=== PATIENT | female | born 1995 | race Caucasian/White ===

== ENCOUNTER 2017-08-30 12:34 | Emergency (ER) | payer OTHER | END 2017-08-30 18:00 | disposition home or self-care (01) | LOC: FTE 12:34 | DX: S59.902A Unspecified injury of left elbow, initial encounter (principal); W22.09XA Striking against other stationary object, initial encounter; Y92.9 Unspecified place or not applicable | CPT/HCPCS: 29105; 73080-LT; 99283-25 ==

== ENCOUNTER 2017-09-02 20:04 | Inpatient (IN) | payer OTHER ==
[2017-09-02] MEDS: SOD CHLORIDE 0.9% 500 ML IV (22:30)
[2017-09-02] MEDS ORDERED: ACETAMINOPHEN 325 MG TAB PO (22:30)
[2017-09-02] MEDS ORDERED: ONDANSETRON 4 MG INJ IV (22:30)
[2017-09-02 22:39] LABS: ADD MAN DIFF? NO
[2017-09-02 22:44] LABS: WHITE BLOOD COUNT 6.1 10^3/ul (4.8-10.8)
[2017-09-02 22:44] LABS: BASOPHILS % 0.5 % (0.0-2.0); EOSINOPHILS # 0.1 10^3/ul (0.0-0.5); HEMOGLOBIN 10.3 g/dl (12.0-16.0); LYMPHOCYTES # 0.9 10^3/ul (0.8-2.9); LYMPHOCYTES % 14.7 % (15.0-51.0); MEAN CORPUSCULAR HEMOGLOBIN 29.6 pg (29.0-33.0); MEAN CORPUSCULAR HGB CONC 33.2 g/dl (32.0-37.0); MEAN CORPUSCULAR VOLUME 89.1 fl (82.0-101.0); MEAN PLATELET VOLUME 9.2 fl (7.4-10.4); MONOCYTE # 0.3 10^3/ul (0.3-0.9); MONOCYTES % 4.7 % (0.0-11.0); NEUTROPHIL # 4.7 10^3/ul (1.6-7.5); PLATELET COUNT 341 10^3/UL (140-415); RED BLOOD COUNT 3.48 10^6/ul (4.20-5.40); RED CELL DISTRIBUTION WIDTH 13.9 % (11.5-14.5)
[2017-09-02 23:08] LABS: ALANINE AMINOTRANSFERASE 52 IU/L (13-69); ALBUMIN 2.8 g/dl (3.3-4.9); ALKALINE PHOSPHATASE 235 IU/L (42-121); ANION GAP 12 (8-16); ASPARTATE AMINO TRANSFERASE 123 IU/L (15-46); BLOOD UREA NITROGEN 4 mg/dl (7-20); CALCIUM 7.7 mg/dl (8.4-10.2); CARBON DIOXIDE 26 mmol/L (21-31); CHLORIDE 104 mmol/L (97-110); CREATININE 0.47 mg/dl (0.44-1.00); GLUCOSE 98 mg/dl (70-220); POTASSIUM 3.6 mmol/L (3.5-5.1); SODIUM 138 mmol/L (135-144); TOTAL PROTEIN 6.8 g/dl (6.1-8.1)
[2017-09-02 23:13] LABS: C-REACTIVE PROTEIN 1.1 mg/dl (0.0-0.9)
[2017-09-02 23:53] LABS: ERYTHROCYTE SEDIMENTATION RATE 60 mm/Hr (0-20)
[2017-09-03] MEDS ORDERED: ALBUTEROL/IPRATROPIUM (NEB) 3 ML AMP HHN (00:30)
[2017-09-03] MEDS ORDERED: NACL 0.9% 3 ML SYG IV (00:30)
[2017-09-03] MEDS ORDERED: morphine 2 MG INJ IV (00:30)
[2017-09-03] MEDS ORDERED: ONDANSETRON 4 MG INJ IV (00:30)
[2017-09-03] MEDS ORDERED: ACETAMINOPHEN 325 MG TAB PO (00:30)
[2017-09-03 02:07] LABS: ADD UMIC NO; UR ASCORBIC ACID NEGATIVE (NEGATIVE); UR BILIRUBIN (Dip) NEGATIVE (NEGATIVE); UR BLOOD (Dip) NEGATIVE (NEGATIVE); UR CLARITY CLEAR (CLEAR); UR COLOR STRAW (YELLOW); UR GLUCOSE (Dip) NEGATIVE (NEGATIVE); UR KETONES (Dip) NEGATIVE (NEGATIVE); UR LEUKOCYTE ESTERASE (Dip) NEGATIVE Leu/ul (NEGATIVE); UR NITRITE (Dip) NEGATIVE (NEGATIVE); UR SPECIFIC GRAVITY (Dip) 1.005 (1.003-1.030); UR TOTAL PROTEIN (Dip) NEGATIVE (NEGATIVE); UR UROBILINOGEN (Dip) NEGATIVE (NEGATIVE)
[2017-09-03 06:32] LABS: WHITE BLOOD COUNT 5.7 10^3/ul (4.8-10.8)
[2017-09-03 06:32] LABS: HEMOGLOBIN 10.1 g/dl (12.0-16.0); MEAN CORPUSCULAR HEMOGLOBIN 29.4 pg (29.0-33.0); MEAN CORPUSCULAR HGB CONC 32.6 g/dl (32.0-37.0); MEAN CORPUSCULAR VOLUME 90.1 fl (82.0-101.0); MEAN PLATELET VOLUME 9.3 fl (7.4-10.4); PLATELET COUNT 328 10^3/UL (140-415); RED BLOOD COUNT 3.44 10^6/ul (4.20-5.40); RED CELL DISTRIBUTION WIDTH 13.8 % (11.5-14.5)
[2017-09-03 06:49] LABS: IRON 46 ug/dl (35-150)
[2017-09-03 06:58] LABS: % IRON SATURATION 26 % SAT (22-52); TOTAL IRON BINDING CAPACITY 176 ug/dl (241-421)
[2017-09-03 07:01] LABS: ALANINE AMINOTRANSFERASE 55 IU/L (13-69); ALBUMIN 2.4 g/dl (3.3-4.9); ALBUMIN/GLOBULIN RATIO 0.63; ALKALINE PHOSPHATASE 227 IU/L (42-121); ANION GAP 10 (8-16); ASPARTATE AMINO TRANSFERASE 117 IU/L (15-46); BLOOD UREA NITROGEN 4 mg/dl (7-20); CALCIUM 7.8 mg/dl (8.4-10.2); CARBON DIOXIDE 26 mmol/L (21-31); CHLORIDE 107 mmol/L (97-110); CREATININE 0.46 mg/dl (0.44-1.00); GLUCOSE 91 mg/dl (70-220); SODIUM 139 mmol/L (135-144); TOTAL PROTEIN 6.2 g/dl (6.1-8.1)
[2017-09-03 07:04] LABS: LACTATE DEHYDROGENASE 1282 IU/L (313-618)
[2017-09-03 07:04] LABS: ADD MAN DIFF? YES; POSITIVE DIFF @See below
[2017-09-03 07:18] LABS: T3 UPTAKE 40.4 % (23.5-40.5); T4 (THYROXINE) 10.9 ug/dl (5.5-11.0)
[2017-09-03 09:34] LABS: ANISOCYTOSIS 1+ (0-0); BAND NEUTROPHILS #M 1.3 10^3/ul (0.0-0.6); BAND NEUTROPHILS % (M) 23 % (0-4); BASOPHILS % (M) 1 % (0-2); GIANT THROMBO% (M) 3 % (0-0); LYMPHOCYTES #M 0.3 10^3/ul (0.8-2.9); LYMPHOCYTES % (M) 7 % (15-51); MICROCYTOSIS 1+ (0-0); MONOCYTE #M 0.1 10^3/ul (0.3-0.9); MONOCYTES % (M) 3 % (0-11); MYELOCYTES % (M) 1 % (0-0); PLATELET ESTIMATE NORMAL; POLYCHROMASIA 1+ (0-0); REACTIVE LYMPHOCYTES #M 0.1 10^3/ul (0.0-0.0); REACTIVE LYMPHOCYTES% (M) 3 % (0-0); SEG NEUT #M 3.6 10^3/ul (1.7-7.5); SEGMENTED NEUTROPHILS (M) % 62 % (39-77); SMUDGE%M 8 % (0-0)
[2017-09-03] MEDS: SOD CHLORIDE 0.45% 1,000 ML IV (13:23)
[2017-09-03 16:31] LABS: RHEUMATOID FACTOR NEGATIVE (NEGATIVE)
[2017-09-03] MEDS: BARIUM SULF 2% 450 ML BTL (BERRY SMOOTHIE) PO (17:06)
[2017-09-03] MEDS ORDERED: SOD CHLORIDE 0.9% 100 ML (21:48)
[2017-09-03] MEDS ORDERED: IOHEXOL 300MG/ML 150 ML BTL (21:48)
[2017-09-04] MEDS: SOD CHLORIDE 0.45% 1,000 ML IV (01:16)
[2017-09-04 06:08] LABS: ADD MAN DIFF? NO
[2017-09-04 06:20] LABS: BASOPHILS % 0.3 % (0.0-2.0); EOSINOPHILS # 0.1 10^3/ul (0.0-0.5); EOSINOPHILS % 0.9 % (0.0-7.0); HEMATOCRIT 32.9 % (37.0-47.0); HEMOGLOBIN 10.4 g/dl (12.0-16.0); LYMPHOCYTES # 0.9 10^3/ul (0.8-2.9); LYMPHOCYTES % 13.1 % (15.0-51.0); MEAN CORPUSCULAR HEMOGLOBIN 28.7 pg (29.0-33.0); MEAN CORPUSCULAR HGB CONC 31.6 g/dl (32.0-37.0); MEAN CORPUSCULAR VOLUME 90.9 fl (82.0-101.0); MEAN PLATELET VOLUME 9.2 fl (7.4-10.4); MONOCYTE # 0.4 10^3/ul (0.3-0.9); MONOCYTES % 5.2 % (0.0-11.0); NEUTROPHIL # 5.5 10^3/ul (1.6-7.5); NEUTROPHILS % 78.9 % (39.0-77.0); PLATELET COUNT 335 10^3/UL (140-415); RED BLOOD COUNT 3.62 10^6/ul (4.20-5.40); RED CELL DISTRIBUTION WIDTH 13.8 % (11.5-14.5)
[2017-09-04 06:54] LABS: ANION GAP 13 (8-16); BLOOD UREA NITROGEN 3 mg/dl (7-20); CALCIUM 7.7 mg/dl (8.4-10.2); CARBON DIOXIDE 25 mmol/L (21-31); CHLORIDE 106 mmol/L (97-110); CREATININE 0.46 mg/dl (0.44-1.00); GLUCOSE 92 mg/dl (70-220); MAGNESIUM 1.9 mg/dl (1.7-2.5); PHOSPHORUS 4.2 mg/dl (2.5-4.9); POTASSIUM 3.5 mmol/L (3.5-5.1); SODIUM 140 mmol/L (135-144)
[2017-09-04] MEDS: INFLUENZA VIRUS VACCINE 0.5 ML (DISPENSING) IM* (09:01)
[2017-09-04 13:02] LABS: ANA SCREEN NEGATIVE (NEGATIVE)
[2017-09-04 19:37] LABS: CYCLIC CITRULLINATED PEP IGG <16 UNITS
[2017-09-05 06:05] LABS: ADD MAN DIFF? NO
[2017-09-05 06:11] LABS: BASOPHILS % 0.5 % (0.0-2.0); EOSINOPHILS # 0.1 10^3/ul (0.0-0.5); EOSINOPHILS % 1.3 % (0.0-7.0); HEMATOCRIT 34.3 % (37.0-47.0); HEMOGLOBIN 11.1 g/dl (12.0-16.0); LYMPHOCYTES % 15.4 % (15.0-51.0); MEAN CORPUSCULAR HEMOGLOBIN 29.2 pg (29.0-33.0); MEAN CORPUSCULAR HGB CONC 32.4 g/dl (32.0-37.0); MEAN CORPUSCULAR VOLUME 90.3 fl (82.0-101.0); MEAN PLATELET VOLUME 9.2 fl (7.4-10.4); MONOCYTE # 0.3 10^3/ul (0.3-0.9); NEUTROPHIL # 4.8 10^3/ul (1.6-7.5); NEUTROPHILS % 77.2 % (39.0-77.0); PLATELET COUNT 343 10^3/UL (140-415); RED CELL DISTRIBUTION WIDTH 13.8 % (11.5-14.5)
[2017-09-05 06:11] LABS: WHITE BLOOD COUNT 6.2 10^3/ul (4.8-10.8)
[2017-09-05 06:37] LABS: ANION GAP 12 (8-16); BLOOD UREA NITROGEN 5 mg/dl (7-20); CALCIUM 7.7 mg/dl (8.4-10.2); CARBON DIOXIDE 27 mmol/L (21-31); CHLORIDE 103 mmol/L (97-110); CREATININE 0.51 mg/dl (0.44-1.00); GLUCOSE 120 mg/dl (70-220); MAGNESIUM 1.9 mg/dl (1.7-2.5); PHOSPHORUS 4.4 mg/dl (2.5-4.9); POTASSIUM 3.3 mmol/L (3.5-5.1); SODIUM 139 mmol/L (135-144)
[2017-09-05] MEDS: METOPROLOL 25 MG TAB PO ×2 (11:38→21:11)
[2017-09-05 12:41] LABS: ANTI-DNA (DOUBLE STRANDED) <95 U/mL (< 301)
[2017-09-06] MEDS: METOPROLOL 25 MG TAB PO (09:25)
== END 2017-09-06 13:10 | disposition home or self-care (01) | DRG 607 ==
LOC: E/R 20:04 → MS2 22:17
DX: R21 Rash and other nonspecific skin eruption (principal); R53.1 Weakness; R53.83 Other fatigue; R00.0 Tachycardia, unspecified; R63.4 Abnormal weight loss; Z68.28 Body mass index [BMI] 28.0-28.9, adult
CPT/HCPCS: 71260; 74177; 80048; 80053; 81003; 82728; 83540; 83615; 83735; 84100; 84436; 84443; 84479; 84702; 84703; 85025; 85613; 85651; 86038; 86140; 86200; 86226; 86430; 90686; 93005; 93306; 99285-25

== ENCOUNTER 2017-09-20 05:44 | Emergency (ER) | payer OTHER ==
[2017-09-20] MEDS: ALBUTEROL 0.083% (NEB) 2.5 MG/3 ML AMP HHN (08:11)
[2017-09-20] MEDS: IPRATROPIUM (NEB) 0.5 MG/2.5 ML AMP HHN (08:11)
[2017-09-20] MEDS: CEFTRIAXONE 1 GM INJ IM (09:01)
[2017-09-20] MEDS: LIDOCAINE 1% (MDV) 20 ML INJ SC (09:19)
== END 2017-09-20 09:41 | disposition home or self-care (01) ==
LOC: FTE 05:44
DX: J18.9 Pneumonia, unspecified organism (principal)
CPT/HCPCS: 71045; 94664; 96372; 99284-25

== ENCOUNTER 2017-10-16 05:19 | Inpatient (IN) | payer OTHER ==
[2017-10-16 05:53] LABS: URINE BLOOD (Dip) POC Negative (NEGATIVE); URINE GLUCOSE (Dip) POC Negative (NEGATIVE); URINE KETONES (Dip) POC Negative (NEGATIVE); URINE LEUKOCYTE EST (Dip) POC Trace (NEGATIVE); URINE NITRITE (Dip) POC Negative (NEGATIVE); URINE TOTAL PROTEIN POC 1+ (NEGATIVE)
[2017-10-16 06:05] LABS: ADD MAN DIFF? NO
[2017-10-16] MEDS: SOD CHLORIDE 0.9% 500 ML IV (06:07)
[2017-10-16 06:08] LABS: BASOPHILS % 0.5 % (0.0-2.0); EOSINOPHILS # 0.1 10^3/ul (0.0-0.5); EOSINOPHILS % 0.9 % (0.0-7.0); HEMATOCRIT 33.1 % (37.0-47.0); HEMOGLOBIN 10.8 g/dl (12.0-16.0); LYMPHOCYTES % 18.2 % (15.0-51.0); MEAN CORPUSCULAR HEMOGLOBIN 29.4 pg (29.0-33.0); MEAN CORPUSCULAR HGB CONC 32.6 g/dl (32.0-37.0); MEAN CORPUSCULAR VOLUME 90.2 fl (82.0-101.0); MEAN PLATELET VOLUME 9.5 fl (7.4-10.4); MONOCYTE # 0.3 10^3/ul (0.3-0.9); MONOCYTES % 4.9 % (0.0-11.0); NEUTROPHIL # 4.1 10^3/ul (1.6-7.5); NEUTROPHILS % 73.5 % (39.0-77.0); NUCLEATED RED BLOOD CELLS% 0.4 /100WBC (0.0-0.0); PLATELET COUNT 312 10^3/UL (140-415); RED BLOOD COUNT 3.67 10^6/ul (4.20-5.40)
[2017-10-16 06:08] LABS: WHITE BLOOD COUNT 5.5 10^3/ul (4.8-10.8)
[2017-10-16 06:26] LABS: ANION GAP 13 (8-16); BLOOD UREA NITROGEN 6 mg/dl (7-20); CALCIUM 7.5 mg/dl (8.4-10.2); CARBON DIOXIDE 26 mmol/L (21-31); CHLORIDE 105 mmol/L (97-110); CREATININE 0.51 mg/dl (0.44-1.00); GLUCOSE 96 mg/dl (70-220); POTASSIUM 3.8 mmol/L (3.5-5.1); SODIUM 140 mmol/L (135-144)
[2017-10-16] MEDS: IOHEXOL 300MG/ML 150 ML BTL (06:36)
[2017-10-16 06:41] LABS: TROPONIN-I < 0.012 ng/ml (0.00-0.12)
[2017-10-16] MEDS: IOHEXOL 100 ML (09:11)
[2017-10-16] MEDS: IOHEXOL 350MG/ML 50 ML BTL (09:12)
[2017-10-16] MEDS: SOD CHLORIDE 0.9% 100 ML (09:12)
[2017-10-16] MEDS: SOD CHLORIDE 0.9% 1,000 ML IV (09:39)
[2017-10-16] MEDS ORDERED: ONDANSETRON 4 MG INJ IV ×2 (10:00→20:30)
[2017-10-16] MEDS ORDERED: ACETAMINOPHEN 325 MG TAB PO ×2 (10:00→20:30)
[2017-10-16 10:03] LABS: CREATINE KINASE 82 IU/L (23-200)
[2017-10-16] MEDS: CEFTRIAXONE 1 GM/50 ML (PMX) 50 ML IVPB (10:08)
[2017-10-16 10:39] LABS: LACTIC ACID 1.3 mmol/L (0.5-2.0)
[2017-10-16] MEDS: AZITHROMYCIN 500MG/NS (PMX) 250 ML IV (10:51)
[2017-10-16 13:22] LABS: LACTIC ACID 1.3 mmol/L (0.5-2.0)
[2017-10-16 13:22] LABS: CREATINE KINASE 89 IU/L (23-200)
[2017-10-16 13:36] LABS: CK-MB 0.93 ng/ml (0.0-2.4)
[2017-10-16 13:41] LABS: TROPONIN-I < 0.012 ng/ml (0.00-0.12)
[2017-10-16] MEDS: METOPROLOL 5 MG INJ IV (15:08)
[2017-10-16] MEDS: METOPROLOL 25 MG TAB PO ×2 (15:08→21:22)
[2017-10-16 17:15] LABS: CREATINE KINASE 73 IU/L (23-200)
[2017-10-16 17:23] LABS: LACTIC ACID 2.5 mmol/L (0.5-2.0)
[2017-10-16 17:27] LABS: CK INDEX 1.4; CK-MB 1.02 ng/ml (0.0-2.4)
[2017-10-16 17:32] LABS: TROPONIN-I < 0.012 ng/ml (0.00-0.12)
[2017-10-16] MEDS: DOCUSATE SODIUM 100 MG CAP PO (21:22)
[2017-10-16 21:42] LABS: LIPASE 60 U/L (23-300)
[2017-10-16 21:46] LABS: C-REACTIVE PROTEIN 1.8 mg/dl (0.0-0.9)
[2017-10-16] MEDS: ACETAMINOPHEN 500 MG TAB PO (21:52)
[2017-10-16 22:44] LABS: ERYTHROCYTE SEDIMENTATION RATE 58 mm/Hr (0-20)
[2017-10-17 01:22] LABS: ADD UMIC NO; UR ASCORBIC ACID NEGATIVE (NEGATIVE); UR BILIRUBIN (Dip) NEGATIVE (NEGATIVE); UR BLOOD (Dip) NEGATIVE (NEGATIVE); UR CLARITY CLEAR (CLEAR); UR COLOR YELLOW (YELLOW); UR GLUCOSE (Dip) NEGATIVE (NEGATIVE); UR KETONES (Dip) NEGATIVE (NEGATIVE); UR LEUKOCYTE ESTERASE (Dip) NEGATIVE Leu/ul (NEGATIVE); UR NITRITE (Dip) NEGATIVE (NEGATIVE); UR SPECIFIC GRAVITY (Dip) 1.006 (1.003-1.030); UR TOTAL PROTEIN (Dip) NEGATIVE (NEGATIVE); UR UROBILINOGEN (Dip) NEGATIVE (NEGATIVE)
[2017-10-17] MEDS: SOD CHLORIDE 0.9% 1,000 ML IV ×5 (01:29→21:18)
[2017-10-17 03:46] LABS: AMPHETAMINE/METHAMPHETAMINE Negative (NEGATIVE); BARBITURATES Negative (NEGATIVE); BENZODIAZEPINES Negative (NEGATIVE); CANNABINOIDS Negative (NEGATIVE); COCAINE Negative (NEGATIVE); OPIATES Negative (NEGATIVE)
[2017-10-17] MEDS: DOCUSATE SODIUM 100 MG CAP PO ×2 (09:09→21:13)
[2017-10-17] MEDS: METOPROLOL 25 MG TAB PO ×2 (09:11→21:13)
[2017-10-17] MEDS: CEFTRIAXONE 1 GM/50 ML (PMX) 50 ML IVPB (09:11)
[2017-10-17] MEDS: AZITHROMYCIN 500MG/NS (PMX) 250 ML IVPB (10:53)
[2017-10-17] MEDS: CLOTRIMAZOLE 10 MG TROCHE MT ×3 (15:00→21:13)
[2017-10-18] MEDS: SOD CHLORIDE 0.9% 1,000 ML IV ×3 (06:27→20:30)
[2017-10-18 08:30] LABS: HEMATOCRIT 29.6 % (37.0-47.0); HEMOGLOBIN 9.5 g/dl (12.0-16.0); MEAN CORPUSCULAR HEMOGLOBIN 29.2 pg (29.0-33.0); MEAN CORPUSCULAR HGB CONC 32.1 g/dl (32.0-37.0); MEAN CORPUSCULAR VOLUME 91.1 fl (82.0-101.0); MEAN PLATELET VOLUME 9.5 fl (7.4-10.4); PLATELET COUNT 309 10^3/UL (140-415); RED BLOOD COUNT 3.25 10^6/ul (4.20-5.40)
[2017-10-18 08:30] LABS: WHITE BLOOD COUNT 4.3 10^3/ul (4.8-10.8)
[2017-10-18 08:40] LABS: POSITIVE DIFF @See below
[2017-10-18 08:41] LABS: ADD MAN DIFF? YES
[2017-10-18 08:44] LABS: CHOLESTEROL 99 mg/dl (100-200)
[2017-10-18 08:44] LABS: CHOL/HDL RATIO 7.6 RATIO; HDL CHOLESTEROL 13 mg/dl (33-83); LDL CHOLESTEROL,CALCULATED 45 mg/dl; TRIGLYCERIDES 205 mg/dl (0-149)
[2017-10-18 08:46] LABS: ALANINE AMINOTRANSFERASE 72 IU/L (13-69); ALBUMIN 2.1 g/dl (3.3-4.9); ALKALINE PHOSPHATASE 776 IU/L (42-121); ANION GAP 12 (8-16); ASPARTATE AMINO TRANSFERASE 331 IU/L (15-46); BLOOD UREA NITROGEN 4 mg/dl (7-20); CALCIUM 6.9 mg/dl (8.4-10.2); CARBON DIOXIDE 25 mmol/L (21-31); CHLORIDE 112 mmol/L (97-110); CREATININE 0.41 mg/dl (0.44-1.00); GLUCOSE 83 mg/dl (70-220); PHOSPHORUS 3.6 mg/dl (2.5-4.9); POTASSIUM 3.4 mmol/L (3.5-5.1); SODIUM 146 mmol/L (135-144); TOTAL PROTEIN 5.7 g/dl (6.1-8.1)
[2017-10-18 09:01] LABS: FREE T4 (FREE THYROXINE) 1.69 ng/dl (0.79-2.35)
[2017-10-18] MEDS: DOCUSATE SODIUM 100 MG CAP PO ×2 (09:02→21:10)
[2017-10-18] MEDS: METOPROLOL 25 MG TAB PO ×2 (09:02→21:00)
[2017-10-18 09:04] LABS: FREE T3 3.84 pg/ml (2.77-5.27)
[2017-10-18] MEDS: CLOTRIMAZOLE 10 MG TROCHE MT ×5 (09:09→21:10)
[2017-10-18] MEDS: CEFTRIAXONE 1 GM/50 ML (PMX) 50 ML IVPB (09:09)
[2017-10-18 09:33] LABS: ANISOCYTOSIS 1+ (0-0); BAND NEUTROPHILS #M 0.3 10^3/ul (0.0-0.6); BAND NEUTROPHILS % (M) 9 % (0-4); GIANT THROMBO% (M) 3 % (0-0); LYMPHOCYTES #M 0.6 10^3/ul (0.8-2.9); LYMPHOCYTES % (M) 15 % (15-51); MICROCYTOSIS 1+ (0-0); MONOCYTE #M 0.1 10^3/ul (0.3-0.9); MONOCYTES % (M) 4 % (0-11); PLATELET ESTIMATE NORMAL; POLYCHROMASIA 2+ (0-0); SEG NEUT #M 3.1 10^3/ul (1.6-7.5); SEGMENTED NEUTROPHILS (M) % 72 % (39-77); SMUDGE%M 17 % (0-0)
[2017-10-18] MEDS ORDERED: POTASSIUM CHLORIDE (SR) 20 MEQ TAB PO (10:16)
[2017-10-18] MEDS: AZITHROMYCIN 500MG/NS (PMX) 250 ML IVPB (11:25)
[2017-10-18] MEDS: POTASSIUM CHLORIDE (SR) 20 MEQ TAB PO (11:25)
[2017-10-18 13:37] LABS: MYELOPEROXIDASE ANTIBODY <1.0 AI; PROTEINASE-3 ANTIBODY <1.0 AI
[2017-10-18] MEDS: CALCIUM GLUCONATE 10% 2 GM in DEXTROSE 5% 100 ML IVPB (14:03)
[2017-10-18 16:01] LABS: HEPATITIS B SURFACE ANTIGEN NEGATIVE (NEGATIVE)
[2017-10-18 16:18] LABS: HEPATITIS C VIRAL ANTIBODY NEGATIVE (NEGATIVE)
[2017-10-19] MEDS: SOD CHLORIDE 0.9% 1,000 ML IV ×4 (02:25→23:39)
[2017-10-19 07:15] LABS: ADD MAN DIFF? NO
[2017-10-19 07:18] LABS: WHITE BLOOD COUNT 4.8 10^3/ul (4.8-10.8)
[2017-10-19 07:18] LABS: BASOPHILS % 0.4 % (0.0-2.0); EOSINOPHILS # 0.1 10^3/ul (0.0-0.5); EOSINOPHILS % 2.5 % (0.0-7.0); HEMATOCRIT 27.8 % (37.0-47.0); HEMOGLOBIN 9.1 g/dl (12.0-16.0); LYMPHOCYTES # 0.8 10^3/ul (0.8-2.9); MEAN CORPUSCULAR HEMOGLOBIN 29.5 pg (29.0-33.0); MEAN CORPUSCULAR HGB CONC 32.7 g/dl (32.0-37.0); MEAN CORPUSCULAR VOLUME 90.3 fl (82.0-101.0); MEAN PLATELET VOLUME 9.5 fl (7.4-10.4); MONOCYTE # 0.2 10^3/ul (0.3-0.9); MONOCYTES % 5.1 % (0.0-11.0); NEUTROPHIL # 3.5 10^3/ul (1.6-7.5); NEUTROPHILS % 73.7 % (39.0-77.0); PLATELET COUNT 303 10^3/UL (140-415); RED BLOOD COUNT 3.08 10^6/ul (4.20-5.40); RED CELL DISTRIBUTION WIDTH 15.2 % (11.5-14.5)
[2017-10-19 07:54] LABS: ANION GAP 10 (8-16); BLOOD UREA NITROGEN 3 mg/dl (7-20); CALCIUM 7.2 mg/dl (8.4-10.2); CARBON DIOXIDE 26 mmol/L (21-31); CHLORIDE 112 mmol/L (97-110); CREATININE 0.41 mg/dl (0.44-1.00); GLUCOSE 85 mg/dl (70-220); POTASSIUM 3.6 mmol/L (3.5-5.1); SODIUM 144 mmol/L (135-144)
[2017-10-19] MEDS: DOCUSATE SODIUM 100 MG CAP PO ×2 (08:31→21:42)
[2017-10-19] MEDS: METOPROLOL 25 MG TAB PO ×2 (08:31→21:43)
[2017-10-19] MEDS: CLOTRIMAZOLE 10 MG TROCHE MT ×5 (08:31→21:42)
[2017-10-19] MEDS: CEFTRIAXONE 1 GM/50 ML (PMX) 50 ML IVPB (08:35)
[2017-10-19] MEDS: AZITHROMYCIN 500MG/NS (PMX) 250 ML IVPB (11:05)
[2017-10-19 13:38] LABS: ALANINE AMINOTRANSFERASE 82 IU/L (13-69); ALBUMIN 1.9 g/dl (3.3-4.9); ALKALINE PHOSPHATASE 746 IU/L (42-121); ASPARTATE AMINO TRANSFERASE 350 IU/L (15-46); TOTAL PROTEIN 5.7 g/dl (6.1-8.1)
[2017-10-19 15:09] LABS: IRON 63 ug/dl (35-150)
[2017-10-19 15:18] LABS: % IRON SATURATION 40 % SAT (22-52); TOTAL IRON BINDING CAPACITY 158 ug/dl (241-421)
[2017-10-19 15:24] LABS: INR 0.89; PROTIME 12.1 Sec (11.9-14.9); PT RATIO 0.9
[2017-10-19 15:40] LABS: AMMONIA 15 umol/l (9-30)
[2017-10-19 15:54] LABS: HEPATITIS B SURFACE ANTIBODY POSITIVE (NEGATIVE)
[2017-10-19 15:56] LABS: HEPATITIS B CORE ANTIBODY NEGATIVE (NEGATIVE)
[2017-10-20 00:32] LABS: ANA SCREEN NEGATIVE (NEGATIVE); ANCA SCREEN NEGATIVE (NEGATIVE); CERULOPLASMIN 24 mg/dL (18-53); MITOCHONDRIAL TB NEGATIVE (NEGATIVE); MYOGLOBIN <27 mcg/L (< 67); SMOOTH MUSCLE AB SCREEN NEGATIVE (NEGATIVE)
[2017-10-20] MEDS: SOD CHLORIDE 0.9% 1,000 ML IV ×4 (04:30→21:11)
[2017-10-20 06:20] LABS: ALANINE AMINOTRANSFERASE 78 IU/L (13-69); ALBUMIN 1.9 g/dl (3.3-4.9); ALBUMIN/GLOBULIN RATIO 0.48; ALKALINE PHOSPHATASE 755 IU/L (42-121); ANION GAP 8 (8-16); ASPARTATE AMINO TRANSFERASE 339 IU/L (15-46); BILIRUBIN,INDIRECT 0.1 mg/dl (0-1.1); BILIRUBIN,TOTAL 0.1 mg/dl (0.2-1.3); BLOOD UREA NITROGEN 4 mg/dl (7-20); CALCIUM 7.1 mg/dl (8.4-10.2); CARBON DIOXIDE 28 mmol/L (21-31); CHLORIDE 112 mmol/L (97-110); CREATININE 0.41 mg/dl (0.44-1.00); GLUCOSE 79 mg/dl (70-220); POTASSIUM 3.4 mmol/L (3.5-5.1); SODIUM 145 mmol/L (135-144); TOTAL PROTEIN 5.8 g/dl (6.1-8.1)
[2017-10-20] MEDS: DOCUSATE SODIUM 100 MG CAP PO ×2 (09:00→21:09)
[2017-10-20] MEDS: CLOTRIMAZOLE 10 MG TROCHE MT ×5 (09:00→21:10)
[2017-10-20] MEDS: METOPROLOL 25 MG TAB PO ×2 (09:00→21:10)
[2017-10-20] MEDS: CEFTRIAXONE 1 GM/50 ML (PMX) 50 ML IVPB (09:30)
[2017-10-20 09:39] LABS: ADD MAN DIFF? NO
[2017-10-20 09:42] LABS: BASOPHILS % 0.5 % (0.0-2.0); EOSINOPHILS # 0.1 10^3/ul (0.0-0.5); EOSINOPHILS % 2.9 % (0.0-7.0); HEMATOCRIT 29.1 % (37.0-47.0); HEMOGLOBIN 9.3 g/dl (12.0-16.0); LYMPHOCYTES # 0.7 10^3/ul (0.8-2.9); LYMPHOCYTES % 17.6 % (15.0-51.0); MEAN CORPUSCULAR HEMOGLOBIN 29.4 pg (29.0-33.0); MEAN CORPUSCULAR VOLUME 92.1 fl (82.0-101.0); MEAN PLATELET VOLUME 10.2 fl (7.4-10.4); MONOCYTE # 0.3 10^3/ul (0.3-0.9); MONOCYTES % 6.3 % (0.0-11.0); NEUTROPHIL # 2.9 10^3/ul (1.6-7.5); NEUTROPHILS % 70.5 % (39.0-77.0); NUCLEATED RED BLOOD CELLS% 0.5 /100WBC (0.0-0.0); PLATELET COUNT 338 10^3/UL (140-415); RED BLOOD COUNT 3.16 10^6/ul (4.20-5.40); RED CELL DISTRIBUTION WIDTH 15.1 % (11.5-14.5)
[2017-10-20 09:42] LABS: WHITE BLOOD COUNT 4.2 10^3/ul (4.8-10.8)
[2017-10-20] MEDS: AZITHROMYCIN 500MG/NS (PMX) 250 ML IVPB ×2 (11:00→14:20)
[2017-10-21] MEDS: SOD CHLORIDE 0.9% 1,000 ML IV ×2 (04:30→05:47)
[2017-10-21 06:14] LABS: ADD MAN DIFF? NO
[2017-10-21 06:27] LABS: WHITE BLOOD COUNT 4.2 10^3/ul (4.8-10.8)
[2017-10-21 06:27] LABS: BASOPHILS % 0.5 % (0.0-2.0); EOSINOPHILS # 0.1 10^3/ul (0.0-0.5); EOSINOPHILS % 2.4 % (0.0-7.0); HEMATOCRIT 28.3 % (37.0-47.0); HEMOGLOBIN 9.2 g/dl (12.0-16.0); LYMPHOCYTES # 0.8 10^3/ul (0.8-2.9); MEAN CORPUSCULAR HEMOGLOBIN 29.8 pg (29.0-33.0); MEAN CORPUSCULAR HGB CONC 32.5 g/dl (32.0-37.0); MEAN CORPUSCULAR VOLUME 91.6 fl (82.0-101.0); MEAN PLATELET VOLUME 9.7 fl (7.4-10.4); MONOCYTE # 0.2 10^3/ul (0.3-0.9); MONOCYTES % 5.8 % (0.0-11.0); NEUTROPHIL # 2.9 10^3/ul (1.6-7.5); NEUTROPHILS % 69.2 % (39.0-77.0); NUCLEATED RED BLOOD CELLS% 0.5 /100WBC (0.0-0.0); PLATELET COUNT 351 10^3/UL (140-415); RED BLOOD COUNT 3.09 10^6/ul (4.20-5.40)
[2017-10-21 07:02] LABS: ALANINE AMINOTRANSFERASE 82 IU/L (13-69); ALBUMIN 1.9 g/dl (3.3-4.9); ALBUMIN/GLOBULIN RATIO 0.48; ALKALINE PHOSPHATASE 697 IU/L (42-121); ANION GAP 11 (8-16); ASPARTATE AMINO TRANSFERASE 335 IU/L (15-46); BILIRUBIN,INDIRECT 0.1 mg/dl (0-1.1); BILIRUBIN,TOTAL 0.1 mg/dl (0.2-1.3); BLOOD UREA NITROGEN 4 mg/dl (7-20); CALCIUM 7.2 mg/dl (8.4-10.2); CARBON DIOXIDE 27 mmol/L (21-31); CHLORIDE 111 mmol/L (97-110); CREATININE 0.41 mg/dl (0.44-1.00); GLUCOSE 78 mg/dl (70-220); POTASSIUM 3.6 mmol/L (3.5-5.1); SODIUM 145 mmol/L (135-144); TOTAL PROTEIN 5.8 g/dl (6.1-8.1)
[2017-10-21] MEDS: DOCUSATE SODIUM 100 MG CAP PO (08:44)
[2017-10-21] MEDS: CLOTRIMAZOLE 10 MG TROCHE MT ×2 (08:45→11:51)
[2017-10-21] MEDS: METOPROLOL 25 MG TAB PO ×2 (08:45→10:58)
[2017-10-21] MEDS: CEFTRIAXONE 1 GM/50 ML (PMX) 50 ML IVPB (10:43)
[2017-10-21] MEDS: AZITHROMYCIN 500MG/NS (PMX) 250 ML IVPB (11:51)
[2017-10-22 19:38] LABS: EBV NUCLEAR AG (EBNA) AB (IGG) >600.00 U/mL; EBV VIRAL CAPSID AG AB (IGM) <36.00 U/mL
== END 2017-10-21 15:25 | disposition home or self-care (01) | DRG 194 ==
LOC: MS2 10-19 16:52 → E/R 05:19 → MS4 09:54
PROVIDERS: Family Medicine
DX: J18.9 Pneumonia, unspecified organism (principal); N39.0 Urinary tract infection, site not specified; K76.0 Fatty (change of) liver, not elsewhere classified; R16.0 Hepatomegaly, not elsewhere classified; R00.0 Tachycardia, unspecified; R21 Rash and other nonspecific skin eruption; D50.9 Iron deficiency anemia, unspecified; D86.0 Sarcoidosis of lung; E78.5 Hyperlipidemia, unspecified; M79.1 Myalgia; R53.83 Other fatigue; R74.0 Nonspecific elevation of levels of transaminase and lactic acid dehydrogenase [LDH]; B96.89 Other specified bacterial agents as the cause of diseases classified elsewhere
CPT/HCPCS: 36415; 71045; 71275; 73718; 74181; 76705; 80048; 80053; 80061; 80076; 80307; 81003; 81025; 82085; 82140; 82164; 82390; 82550; 82553; 82728; 83540; 83605; 83690; 83735; 83874; 84100; 84439; 84443; 84481; 84484; 85025; 85610; 85651; 86021; 86038; 86140; 86235; 86255; 86664; 86704; 86706; 86709; 86803; 87040; 87070; 87086; 87340; 87496; 93005; 96374; 96375; 99285-25

== ENCOUNTER 2018-03-01 01:52 | Emergency (ER) | payer OTHER ==
[2018-03-01] MEDS: IBUPROFEN 600 MG TAB PO (03:33)
== END 2018-03-01 05:23 | disposition home or self-care (01) ==
LOC: FTE 01:52
DX: M79.89 Other specified soft tissue disorders (principal)
CPT/HCPCS: 73120; 99283-25

== ENCOUNTER 2018-08-06 11:34 | Emergency (ER) | payer OTHER | END 2018-08-06 13:56 | disposition home or self-care (01) | LOC: FTE 11:34 | DX: L60.0 Ingrowing nail (principal) | CPT/HCPCS: 99283; Z7502 ==